=== PATIENT | female | born 1955 | race Caucasian/White ===

== ENCOUNTER 2021-04-03 10:51 | Emergency (ER) | payer OTHER ==
[~2021-04-03] VITALS: Ht 157.5 cm; Wt 95.7 kg
[2021-04-03] MEDS ORDERED: NORCO5 PO ×2 (12:34→12:40)
[2021-04-03 12:38] VITALS: BP 134/74
== END 2021-04-03 12:45 | disposition home or self-care (01) ==
LOC: ER 10:51
DX: S20.212A Contusion of left front wall of thorax, initial encounter (principal); M25.512 Pain in left shoulder; W18.30XA Fall on same level, unspecified, initial encounter; Y93.89 Activity, other specified; Y92.89 Other specified places as the place of occurrence of the external cause; Y99.9 Unspecified external cause status